=== PATIENT | female | born 1955 | race Native Hawaiian/Other Pacific Islander ===

== ENCOUNTER → 2016-09-16 14:24 | Outpatient (CLI) | payer OTHER ==
[~2016-09-16 14:24] MED LIST: AMIT25TA22 PO; DULO30CA PO; GABA400C2 PO; HYDR25TA60 PO; LISI20TA11 PO; PRAVACHOL80 MG PO; PROPRANOLOL10 MG PO; TRAM50TA PO; XANAX XR1 MG OR
== END | disposition home or self-care (01) ==
LOC: AMB 14:24
DX: R55 Syncope and collapse (principal)

== ENCOUNTER 2016-09-27 18:58 | Outpatient (CLI) | payer OTHER | END 2016-09-27 19:04 | disposition short-term general hospital (02) | LOC: AMB 18:58 | DX: R10.84 Generalized abdominal pain (principal); G25.2 Other specified forms of tremor; R53.1 Weakness | CPT/HCPCS: A0425; A0427 ==

== ENCOUNTER 2016-09-27 19:08 | Emergency (ER) | payer OTHER ==
[~2016-09-27] VITALS: Ht 177.8 cm; Wt 133.8 kg
[2016-09-27 20:55] LABS: PLATELET COUNT 294 K/uL (152-353)
[2016-09-27 22:46] VITALS: BP 120/78; TEMP 98.3
== END 2016-09-27 22:48 | disposition home or self-care (01) ==
LOC: ED 19:08
PROVIDERS: Emergency Medicine
DX: R10.84 Generalized abdominal pain (principal); E11.65 Type 2 diabetes mellitus with hyperglycemia; R00.0 Tachycardia, unspecified
CPT/HCPCS: 36415; 80053; 82150; 82550; 82962; 83690; 84484; 85027; 93005; 99283; J1815

== ENCOUNTER 2016-10-20 18:17 | Emergency (ER) | payer OTHER ==
[~2016-10-20] VITALS: Ht 175.3 cm; Wt 120.2 kg
[2016-10-20 18:37] VITALS: BP 158/67; TEMP 97.6
== END 2016-10-20 18:37 | disposition home or self-care (01) ==
LOC: ED 18:17
DX: B85.1 Pediculosis due to Pediculus humanus corporis (principal)
CPT/HCPCS: 99281